=== PATIENT | male | born 1960 | race Hispanic/Latino ===

== ENCOUNTER 2019-09-22 16:48 | Emergency (ER) | payer OTHER ==
[2019-09-22] MEDS ORDERED: IBUPROFEN 400 MG TAB ONE (18:07)
[2019-09-22] MEDS ORDERED: HYDROCODONE/APAP 7.5/325 MG TAB ONE (18:07)
--- NOTE | 2019-09-22 18:58 | RAD REPORT ---
EXAM DESCRIPTION: RAD - Hand Left 3 View - 09/22/2019 6:39 pm CLINICAL HISTORY: Pain;Swelling COMPARISON: No comparisons FINDINGS: Moderately severe soft tissue swelling is seen along the dorsum of the hand. No soft tissu e gas is evident. No fracture, dislocation or aggressive marrow lesion.
--- NOTE | 2019-09-22 19:03 | EDPHYS ---
Physician Documentation [facility] Name: Luis Mckeon Age: 58 yrs Sex: Male : 1960 Arrival Date: 09/22/2019 Time: 16:50 Bed 25 Private MD: ED Physician Emeterio Hernandez HPI: 09/21 18:00 This 58 yrs old Male presents to ER via Ambulatory with complaints of Hand cp Swelling. 18:00 The patient or guardian reports pain, swelling, tenderness. cp 18:00 The complaints affect the left hand diffusely. Context: resulted from an unknown cause. cp Onset: The symptoms/episode began/occurred 3 day(s) ago. 18:00 Associated signs and symptoms: Pertinent negatives: cyanosis distally, fever, numbness cp distally. 18:00 Patient reports injury to left wrist about 15 years ago and denies recent injury. cp Historical: - Allergies: 17:29 No Known Allergies; ph - Home Meds: 17:29 None [Active]; ph - PMHx: 17:29 Gout; ph - PSHx: 17:29 None; ph - Immunization history:: Adult Immunizations up to date. - Social history:: Smoking status: Patient reports the use of cigarette tobacco products, denies chronic smoking, but will smoke occasionally. ROS: 18:10 MS/extremity: Positive for pain, swelling, tenderness, Negative for injury or acute cp deformity, erythema, paresthesias. 18:10 Constitutional: Negative for body aches, chills, fever. cp 18:10 Skin: Negative for rash. 18:10 All other systems are negative. Exam: 18:15 Constitutional: The patient appears in no acute distress, alert, awake, non-toxic, well cp developed, well nourished, uncomfortable. 18:15 Musculoskeletal/extremity: Extremities: grossly normal except: noted in the dorsum of cp left hand and left wrist: swelling, tenderness, pain to palpation in snuff box area, ROM: limited passive range of motion due to pain, in the left wrist, Perfusion: the extremity is normally perfused throughout, Sensation intact. 18:15 Skin: overlying skin of left hand and wrist intact and no signs of cellulitis. Vital Signs: 17:26 BP 142 / 96; Pulse 71; Resp 18; Temp 98.7; Pulse Ox 98% on R/A; Weight 90.72 kg; ph 19:00 BP 146 / 94; Pulse 68; Resp 18; Pulse Ox 99% on R/A; Pain 8/10; vc Procedures: 19:25 Splinting: Splint applied to left wrist using wrist splint, applied by tech. Examined cp by me, post splint application: neurovascular intact, Patient tolerated well. MDM: 17:44 Patient medically screened. cp 18:20 Differential diagnosis: closed fracture, gout, cellulitis. cp 18:30 Test interpretation: by ED physician or midlevel provider: xrays of left hand negative cp for acute fracture. 19:02 Data reviewed: vital signs, nurses notes, radiologic studies, plain films, and as a cp result, I will discharge patient. 19:02 Counseling: I had a detailed discussion with the patient and/or guardian regarding: the cp historical points, exam findings, and any diagnostic results supporting the discharge/admit diagnosis, radiology results, the need for outpatient follow up, a family practitioner, to return to the emergency department if symptoms worsen or persist or if there are any questions or concerns that arise at home. 19:02 Response to treatment: the patient's symptoms have markedly improved after treatment. cp 09/21 17:54 Order name: XRAY Hand LEFT 3 View cp 09/21 18:41 Order name: Splint - Wrist: left; Complete Time: 19:23 cp Administered Medications: 18:05 Drug: Ibuprofen 800 mg Route: PO; vc 19:23 Follow up: Response: No adverse reaction; Pain is decreased vc 18:05 Drug: Hydrocodone-Acetaminophen (7.5 mg-325 mg) 1 tabs Route: PO; vc 19:24 Follow up: Response: No adverse reaction; Pain is decreased vc Disposition: 19:30 Chart complete. cp 09/22 07:56 Co-signature as Attending Physician, Emeterio Hernandez MD I agree with the assessment and kdr plan of care. Disposition: 09/22/19 19:03 Discharged to Home. Impression: Pain in left wrist. - Condition is Stable. - Discharge Instructions: Wrist Pain. - Prescriptions for Prednisone 20 mg Oral Tablet - take 1 tablet by ORAL route once daily for 5 days; 5 tablet. Tylenol- Codeine #3 300-30 mg Oral Tablet - take 2 tablets by ORAL route every 8 hours As needed; 20 tablet. - Medication Reconciliation Form, Thank You Letter, Antibiotic Education, Prescription Opioid Use form. - Follow up: Private Physician; When: 2 - 3 days; Reason: Recheck today's complaints. - Problem is new. - Symptoms have improved. Signatures: Dispatcher [employer] EDMS Emeterio Hernandez MD MD kdr Hall, Patricia, RN RN ph Trell Foley, PA PA cp Amy Hernandez RN RN vc Corrections: (The following items were deleted from the chart) 09/21 19:26 19:03 09/22/2019 19:03 Discharged to Home. Impression: Pain in left wrist. Condition is vc Stable. Forms are Medication Reconciliation Form, Thank You Letter, Antibiotic Education, Prescription Opioid Use. Follow up: Private Physician; When: 2 - 3 days; Reason: Recheck today's complaints. Problem is new. Symptoms have improved. cp
--- NOTE | 2019-09-22 19:03 | ER ---
Nurse's Notes [facility] Name: Luis Mckeon Age: 58 yrs Sex: Male : 1960 Arrival Date: 09/22/2019 Time: 16:50 Bed 25 Private MD: Diagnosis: Pain in left wrist Presentation: 09/21 17:26 Chief complaint: Patient states: L hand pain and swelling that began Saturday and has ph progressively gotten worse, denies fever or recent trauma, reports old injury to hand and past hx of gout. Coronavirus screen: Patient denies a cough. Patient denies shortness of breath or difficulty breathing. Patient denies measured and/or subjective temperature greater than 100.4F prior to today's visit. Patient denies travel on a cruise ship or to a country the [facility] currently lists as an affected area. Patient denies contact with known and/or suspected case of COVID-19. Ebola Screen: No symptoms or risks identified at this time. Initial Sepsis Screen: Does the patient meet any 2 criteria? No. Patient's initial sepsis screen is negative. Does the patient have a suspected source of infection? No. Patient's initial sepsis screen is negative. Risk Assessment: Do you want to hurt yourself or someone else? Patient reports no desire to harm self or others. Onset of symptoms was September 22, 2019. 17:26 Method Of Arrival: Ambulatory 17:26 Acuity: JENN 3 ph Triage Assessment: 18:08 General: Appears in no apparent distress. uncomfortable, Behavior is calm, cooperative, vc appropriate for age. Pain: Complains of pain in left hand Pain currently is 10 out of 10 on a pain scale. Quality of pain is described as crushing, sharp, shooting, Aggravated by increased activity, cold. Historical: - Allergies: 17:29 No Known Allergies; ph - Home Meds: 17:29 None [Active]; ph - PMHx: 17:29 Gout; ph - PSHx: 17:29 None; ph - Immunization history:: Adult Immunizations up to date. - Social history:: Smoking status: Patient reports the use of cigarette tobacco products, denies chronic smoking, but will smoke occasionally. Screenin:07 Abuse screen: Denies threats or abuse. Nutritional screening: No deficits noted. vc Tuberculosis screening: No symptoms or risk factors identified. Fall Risk None identified. Assessment: 18:11 General: Appears in no apparent distress. uncomfortable, Behavior is calm, cooperative, vc appropriate for age. Pain: Complains of pain in left hand Pain currently is 10 out of 10 on a pain scale. Quality of pain is described as crushing, pressure, sharp, shooting. Neuro: Level of Consciousness is awake, alert, obeys commands, Oriented to person, place, time. Neuro: Cardiovascular: Capillary refill < 3 seconds Patient's skin is warm and dry. Cardiovascular: Edema Present to left hand. Respiratory: Airway is patent Respiratory effort is even, unlabored, Respiratory pattern is regular, symmetrical. GI: No signs and/or symptoms were reported involving the gastrointestinal system. : No signs and/or symptoms were reported regarding the genitourinary system. Derm: 19:00 Reassessment: Patient appears in no apparent distress at this time. Patient and/or vc family updated on plan of care and expected duration. Pain level reassessed. Patient is alert, oriented x 3, equal unlabored respirations, skin warm/dry/pink. Patient states symptoms have improved. Vital Signs: 17:26 BP 142 / 96; Pulse 71; Resp 18; Temp 98.7; Pulse Ox 98% on R/A; Weight 90.72 kg; ph 19:00 BP 146 / 94; Pulse 68; Resp 18; Pulse Ox 99% on R/A; Pain 8/10; vc ED Course: 16:50 Patient arrived in ED. ds1 17:29 Triage completed. ph 17:29 Arm band placed on Patient placed in an exam room. ph 17:34 Trell Foley PA is PHCP. cp 17:34 Emeterio Hernandez MD is Attending Physician. cp 17:54 Amy Hernandez, WILNER is Primary Nurse. vc 18:10 Bed in low position. Call light in reach. vc 18:39 XRAY Hand LEFT 3 View In Process Unspecified. EDMS 19:25 No provider procedures requiring assistance completed. Patient did not have IV access vc during this emergency room visit. Administered Medications: 18:05 Drug: Ibuprofen 800 mg Route: PO; vc 19:23 Follow up: Response: No adverse reaction; Pain is decreased vc 18:05 Drug: Hydrocodone-Acetaminophen (7.5 mg-325 mg) 1 tabs Route: PO; vc 19:24 Follow up: Response: No adverse reaction; Pain is decreased vc Outcome: 19:03 Discharge ordered by . cp 19:25 Discharged to home ambulatory. vc 19:25 Condition: good 19:25 Discharge instructions given to patient, Instructed on discharge instructions, follow up and referral plans. no drinking with medication, no driving heavy equipment, medication usage, splint care Demonstrated understanding of instructions, follow-up care, medications, splint care, Prescriptions given X 2. 19:26 Patient left the ED. vc Signatures: Dispatcher [employer] EDWA Jayde Adams ds1 Janie Mcintyre RN RN ph Trell Foley, PA PA Amy Brown RN RN vc Corrections: (The following items were deleted from the chart) 18:14 18:08 Pain: Complains of pain in right hand Pain currently is 10 out of 10 on a pain vc scale. Quality of pain is described as crushing, sharp, shooting, Aggravated by increased activity, cold, vc 18:21 16:30 BP 123 / 63; Pulse 65bpm; Resp 16bpm; Pulse Ox 98% RA; vc vc 18:21 17:30 BP 112 / 73; Pulse 64bpm; Resp 15bpm; Pulse Ox 98% RA; vc vc 18:21 18:15 BP 122 / 70; Pulse 61bpm; Resp 17bpm; Pulse Ox 95% RA; vc vc
[2019-09-22 19:30] VITALS: TEMP 98.7
[2019-09-22 19:32] VITALS: BP 146/94; O2SAT 99
== END 2019-09-22 19:26 | disposition home or self-care (01) ==
LOC: ER 16:48
DX: M25.532 Pain in left wrist (principal); Z72.0 Tobacco use
CPT/HCPCS: 99283